=== PATIENT | female | born 1955 | race Caucasian/White ===

== ENCOUNTER 2018-10-24 08:03 | Emergency (ER) | payer SELFPAY ==
[~2018-10-24] VITALS: Ht 167.6 cm; Wt 83.9 kg
[~2018-10-24 08:03] MED LIST: CIPR500T78 PO; COLE625T9 PO; HYDR-3720 PO; HYDR-3876 PO; NITR-65 PO; NITR100C44 PO; NITR50CA4 PO; PARO40TA2 PO; PHEN200T27 PO; PRX20T PO; TAMS0.4C9 PO
[2018-10-24] MEDS ORDERED: NS IV 1000 ML 1,000 ML IV STA (08:08)
[2018-10-24] MEDS ORDERED: ONDANSETRON 4 MG/2 ML (SDV) Z0FRAN IVP ONE (08:15)
[2018-10-24] MEDS ORDERED: NITROGLYCERIN 0.4 MG SL TABS BTL 25'S SL PRN (08:15)
[2018-10-24 08:26] LABS: BASOPHILS % (AUTO) 0 % (0-10); EOSINOPHILS # (AUTO) 0.2 10^3/uL (0.0-0.3); EOSINOPHILS % (AUTO) 2 % (0-10); HEMATOCRIT 43 % (35-52); HEMOGLOBIN 14.4 G/DL (11.5-16.0); LYMPHOCYTES # (AUTO) 3.7 X 10^3 (1.0-4.0); LYMPHOCYTES % (AUTO) 43 % (12-44); MEAN CORPUSCULAR HEMOGLOBIN 31 PG (25-34); MEAN CORPUSCULAR HGB CONC 34 G/DL (32-36); MEAN CORPUSCULAR VOLUME 92 FL (80-99); MEAN PLATELET VOLUME 10.7 FL (7.4-10.4); MONOCYTES # (AUTO) 0.4 X 10^3 (0.0-1.0); MONOCYTES % (AUTO) 5 % (0-12); NEUTROPHILS # (AUTO) 4.4 X 10^3 (1.8-7.8); NEUTROPHILS % (AUTO) 51 % (42-75); PLATELET COUNT 262 10^3/uL (130-400); RED CELL DISTRIBUTION WIDTH 12.7 % (10.0-14.5); WHITE BLOOD COUNT 8.7 10^3/uL (4.3-11.0)
--- NOTE | 2018-10-24 08:27 | ED Chest Pain ---
General Chief Complaint: Chest Pain Stated Complaint: SYNCOPE Source: patient, EMS Exam Limitations: no limitations History of Present Illness Date Seen by Provider: Oct 24, 2018 Time Seen by Provider: 08:03 Initial Comments Here with report of chest pain and syncopal episode this morning. She apparently had got up and felt a little nauseated so she thought she should eat. She went to the kitchen to get some breakfast and sat down at the table. She became hot a nd sweaty and nauseated and then ultimately passed out onto the kitchen floor. She denies injury. Does complain of 6 out of 10 left-sided chest pain that is nonradiating. She's never had this before. Denies shortness of breath. 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 NTG SL OFFSET SECOND PRESS OPERATOR: No Associated Symptoms: No back pain; diaphoresis, nausea/vomiting; No shortness of breath; weakness Allergies and Home Medications Allergies Coded Allergies: hydromorphone (Unverified Allergy, Unknown, 09/23/14) Home Medications Paroxetine Hcl 40 Mg Tablet, 40 MG PO HS, (Reported) Patient Home Medication List Home Medication List Reviewed: Yes Review of Systems Review of Systems Constitutional: see HPI; No chills, No fever; weakness EENTM: No Symptoms Reported Respiratory: No Symptoms Reported Cardiovascular: Chest Pain, Syncope Gastrointestinal: Denies Constipated; Nausea, Vomiting Genitourinary: No Symptoms Reported Musculoskeletal: no symptoms reported All Other Systems Reviewed Negative Unless Noted: Yes Past Ckxsixt-Qpdvbx-Zsxvtv Hx Past Med/Social Hx: Reviewed Nursing Past Med/Soc Hx Patient Social History Alcohol Use: Denies Use Recreational Drug Use: No Smoking Status: Current Everyday Smoker Past Medical History Surgeries: Yes Section Respiratory: No Cardiac: No Neurological: No Reproductive Disorders: No Female Reproductive Disorders: Denies Sexually Transmitted Disease: No HIV/AIDS: No Genitourinary: Yes Kidney Stones Loss of Vision: Denies Hearing Impairment: Denies Anxiety Psoriasis Adverse Reaction/Blood Tranf: No Family Medical History Reviewed Nursing Family Hx No Pertinent Family Hx Physical Exam Vital Signs Vital Signs - First Documented 10/24/18 08:03 Temp 98.0 Pulse 70 Resp 18 B/P (MAP) 140/67 (91) Pulse Ox 96 O2 Delivery Room Air Capillary Refill : Height, Weight, BMI Height: 5'6.00" Weight: 200lbs. 0.0oz. 90.914208px; BMI Method:Stated General Appearance: No Apparent Distress, WD/WN HEENT: PERRL/EOMI, Pharynx Normal Neck: Non Tender, Supple Respiratory: Lungs Clear, Normal Breath Sounds Cardiovascular: Regular Rate, Rhythm, No Murmur Gastrointestinal: Non Tender, Soft Extremity: Normal Range of Motion, Non Tender Neurologic/Psychiatric: Alert, Oriented x3 Skin: Normal Color, Warm/Dry Progress/Results/Core Measures Results/Orders Lab Results Laboratory Tests Test 10/24/18 08:10 10/24/18 11:58 Range/Units White Blood Count 8.7 4.3-11.0 10^3/uL Red Blood Count 4.68 4.35-5.85 10^6/uL Hemoglobin 14.4 11.5-16.0 G/DL Hematocrit 43 35-52 % Mean Corpuscular Volume 92 80-99 FL Mean Corpuscular Hemoglobin 31 25-34 PG Mean Corpuscular Hemoglobin Concent 34 32-36 G/DL Red Cell Distribution Width 12.7 10.0-14.5 % Platelet Count 262 130-400 10^3/uL Mean Platelet Volume 10.7 H 7.4-10.4 FL Neutrophils (%) (Auto) 51 42-75 % Lymphocytes (%) (Auto) 43 12-44 % Monocytes (%) (Auto) 5 0-12 % Eosinophils (%) (Auto) 2 0-10 % Basophils (%) (Auto) 0 0-10 % Neutrophils # (Auto) 4.4 1.8-7.8 X 10^3 Lymphocytes # (Auto) 3.7 1.0-4.0 X 10^3 Monocytes # (Auto) 0.4 0.0-1.0 X 10^3 Eosinophils # (Auto) 0.2 0.0-0.3 10^3/uL Basophils # (Auto) 0.0 0.0-0.1 10^3/uL Prothrombin Time 13.3 12.2-14.7 SEC INR Comment 1.0 0.8-1.4 Activated Partial Thromboplast Time 27 24-35 SEC D-Dimer 1.11 H 0.00-0.49 UG/ML Sodium Level 142 135-145 MMOL/L Potassium Level 3.7 3.6-5.0 MMOL/L Chloride Level 105 98-107 MMOL/L Carbon Dioxide Level 25 21-32 MMOL/L Anion Gap 12 5-14 MMOL/L Blood Urea Nitrogen 12 7-18 MG/DL Creatinine 0.73 0.60-1.30 MG/DL Estimat Glomerular Filtration Rate > 60 BUN/Creatinine Ratio 16 Glucose Level 160 H 70-105 MG/DL Calcium Level 9.3 8.5-10.1 MG/DL Corrected Calcium 9.1 8.5-10.1 MG/DL Magnesium Level 2.0 1.6-2.4 MG/DL Total Bilirubin 0.5 0.1-1.0 MG/DL Aspartate Amino Transf (AST/SGOT) 22 5-34 U/L Alanine Aminotransferase (ALT/SGPT) 29 0-55 U/L Alkaline Phosphatase 83 40-136 U/L Myoglobin 22.2 10.0-92.0 NG/ML Troponin I < 0.028 < 0.028 <0.028 NG/ML Total Protein 7.3 6.4-8.2 GM/DL Albumin 4.2 3.2-4.5 GM/DL TSH [place] Testing 1.43 0.35-4.94 UIU/ML My Orders Orders - BRENT ROCKWELL MD Ekg Tracing (10/24/18 08:05) Cbc With Automated Diff (10/24/18 08:08) Magnesium (10/24/18 08:08) Chest 1 View, Ap/Pa Only (10/24/18 08:08) Cardiac Profile 1 (10/24/18 08:08) Comprehensive Metabolic Panel (10/24/18 08:08) Myoglobin Serum (10/24/18 08:08) Protime With Inr (10/24/18 08:08) Partial Thromboplastin Time (10/24/18 08:08) O2 (10/24/18 08:08) Monitor-Rhythm Ecg Trace Only (10/24/18 08:08) Lipid Panel (10/25/18 06:00) Ed Iv/Invasive Line Start (10/24/18 08:08) Fibrin Degradation Products (10/24/18 08:08) Nitroglycerin 0.4 Mg Btl 25's (Nitrostat (10/24/18 08:15) Ondansetron Injection (Zofran Injectio (10/24/18 08:15) Ns Iv 1000 Ml (Sodium Chloride 0.9%) (10/24/18 08:08) Morphine Injection (Morphine Injection (10/24/18 08:45) Ct Angio Chest W (10/24/18 08:58) Iohexol Injection (Omnipaque 350 Mg/Ml 1 (10/24/18 09:15) Received Contrast (Hold Metformin- Contr (10/24/18 09:15) Ns (Ivpb) (Sodium Chloride 0.9% Ivpb Bag (10/24/18 09:15) Thyroid Analyzer (10/24/18 10:16) Ketorolac Injection (Toradol Injection) (10/24/18 10:16) Us Thyroid [id number] (10/24/18 11:06) Troponin I (10/24/18 11:08) Ekg Tracing (10/24/18 11:08) Medications Given in ED Current Medications Medications Dose Ordered Sig/Zackary Route Start Time Stop Time Status Last Admin Dose Admin Iohexol 100 ml ONCE ONCE IV 10/24/18 09:15 10/24/18 09:16 DC 10/24/18 09:18 80 ML Nitroglycerin 0.4 mg UD PRN SL 10/24/18 08:15 10/24/18 08:25 0.4 MG Ondansetron HCl 4 mg ONCE ONCE IVP 10/24/18 08:15 10/24/18 08:16 DC 10/24/18 08:23 4 MG Sodium Chloride 100 ml ONCE ONCE IV 10/24/18 09:15 10/24/18 09:16 DC 10/24/18 09:18 80 ML Vital Signs/I&O 10/24/18 10/24/18 10/24/18 10/24/18 08:03 08:54 10:18 11:15 Temp 98.0 Pulse 70 69 67 65 Resp 18 18 18 18 B/P (MAP) 140/67 (91) 111/63 (79) 108/67 (81) 99/50 (66) Pulse Ox 96 96 95 96 O2 Delivery Room Air Room Air Room Air Room Air 10/24/18 12:12 Pulse 66 Resp 18 B/P (MAP) 105/52 (69) Pulse Ox 96 O2 Delivery Room Air Progress Progress Note : Progress Note Seen and evaluated. IV by EMS. Labs, x-ray, EKG and nitroglycerin sublingual ordered. Normal saline 1 L bolus. Monitor patient. Considered morphine but patient does not want to do that. Monitor patient. 1010: Labs reviewed and CT noted. We will add thyroid studies. There are currently no beds available here and none in the foreseeable future. She would prefer not to be transferred if possible. We will recheck EKG and troponin for serial testing. Toradol 30 mg IV ordered. Monitor patient. 1230: Pain free. I discussed the case with Dr. Mann and he will see her in follow-up at [place] on . Patient to call for appointment. We did get thyroid ultrasound given recommendations from CT and we're pending those results. Patient is pain-free. 1303: Ultrasound results noted and in chart. Repeat troponin negative. Repeat EKG is negative. Patient feels comfortable going home. Discharge home with return precautions. Patient verbalize understanding instructions and agreement with plan. Initial ECG Impression Date: Oct 24, 2018 Initial ECG Impression Time: 08:09 Initial ECG Rate: 60 Initial ECG Rhythm: Normal Sinus Initial ECG Impression: Normal Initial ECG Comparisson: No Previous ECG Available Comment Normal sinus rhythm with normal axis. No evidence of ST elevation OR. No previous available for comparison. Interpreted by me. EKG : EKG Time: 11:52 (11:52) Rate: 55 Rhythm: Normal Sinus ECG Impression: Normal Comment Sinus rhythm with normal axis. No evidence of ST elevation OR similar to sandra west done earlier today. Interpreted by me. Diagnostic Imaging Diagonstic Imaging: Xray Plain Films/CT/US/NM/MRI: chest Comments [facility]. [place], [place] NAME: RYAN ALLEN [facility] REC#: [id number] PT STATUS: REG ER : 1955 PHYSICIAN: BRENT ROCKWELL MD ADMIT DATE: 10/24/18/ER Draft Date of Exam:10/24/18 CHEST 1 VIEW, AP/PA ONLY INDICATION: Nausea and dizziness. FINDINGS: Portable chest. Lungs are well-aerated and clear. Heart not enlarged. No pulmonary edema. No pneumothorax or pleural effusion. No bony abnormalities. IMPRESSION: Negative portable chest. Dictated on workstation # [id number] Dict: 10/24/18 0854 Trans: 10/24/18 0856 [facility] [id number] Interpreted by: GLORIA HERNANDEZ MD Electronically signed by: Mik Imaging: CT Plain Films/CT/US/NM/MRI: chest Comments [facility] [place], [place] NAME: RYAN ALLEN [facility] REC#: [id number] PT STATUS: REG ER : 1955 PHYSICIAN: BRENT ROCKWELL MD ADMIT DATE: 10/24/18/ER Draft Date of Exam:10/24/18 CT ANGIO CHEST W PROCEDURE: CT angiography of the chest with contrast. TECHNIQUE: Multiple contiguous axial images were obtained through the chest after uneventful bolus administration of intravenous contrast. 3D reconstructed CTA MIP acquisitions were also performed. Auto Exposure Controls were utilized during the CT exam to meet ALARA standards for radiation dose reduction. INDICATION: Chest pain. Syncopal episode. COMPARISON: None. FINDINGS: This helical CT pulmonary angiogram is diagnostic to the subsegmental level branches of the pulmonary artery and demonstrates no pulmonary emboli. The heart and great vessels are unremarkable. No evidence of thoracic aortic aneurysm or dissection. There is scattered calcified aortic and coronary atherosclerotic plaque. There is no pericardial effusion. There is no axillary, mediastinal, or hilar adenopathy. Nodules are visualized within the right lobe of the thyroid with the largest measuring approximately 2.1 cm. Centrilobular emphysema is noted, greatest in the apices. Mild bronchial wall thickening is seen in the proximal bronchi. The lungs demonstrate no consolidation or suspicious pulmonary nodules. No pleural effusion or pneumothorax is seen. The osseous structures appear normal. Hepatic steatosis is noted. The bilateral adrenal glands are unremarkable. IMPRESSION: 1. No acute pulmonary embolus. 2. Mild bronchial wall thickening which can be seen with bronchitis/bronchiolitis. No focal consolidation. 3. Nodules within the thyroid with the largest measuring 2.1 cm in the right lobe of the thyroid. Recommend further evaluation with an outpatient thyroid ultrasound. 4. Hepatic steatosis. Dictated on workstation # [id number] Dict: 10/24/18 0945 Trans: 10/24/18 0952 [id number] Interpreted by: JAKUB ANSARI DO Electronically signed by: Mik Imaging: Ultrasound Plain Films/CT/US/NM/MRI: other Comments [facility] [place] [place] NAME: RYAN ALLEN [facility] REC#: [id number] PT STATUS: REG ER : 1955 PHYSICIAN: BRENT ROCKWELL MD ADMIT DATE: 10/24/18/ER Draft Date of Exam:10/24/18 US THYROID [id number] PROCEDURE: US Thyroid. TECHNIQUE: Multiple Real-time grayscale images were obtained of the thyroid in various projections. INDICATION: Multinodular goiter. COMPARISON: No prior studies are available for comparison. FINDINGS: The right lobe of the thyroid measures 5.9 x 3.6 x 2.0 cm and the left lobe measures 4.6 x 1.4 x 1.3 cm. The isthmus is 4 mm in thickness. The left lobe of the thyroid does contain a circumscribed hypoechoic nodule in the lower pole measuring 1.3 x 0.7 x 0.8 cm. This has have macrocalcifications. Larger nodules are identified throughout the right lobe of the thyroid. A hypoechoic nodule in the midportion of the right lobe measures 2.5 x 1.8 x 1.8 cm. A nodule in the midline involving the isthmus measures 2.4 x 1.4 x 2.2 cm. A smaller nodule in the upper pole measures 1.4 x 0.9 x 1.0 cm. No other masses are seen. IMPRESSION: Multinodular thyroid, most suggestive of a multinodular goiter. Dominant nodules are located in the right lobe. Consideration could be given to performance of fine-needle aspiration. If no intervention is performed, a followup ultrasound in 6 months would be recommended to confirm stability. Dictated on workstation # [id number] Dict: 10/24/18 1212 Trans: 10/24/18 1222 [id number] Interpreted by: DANISHA LAWRENCE MD Electronically signed by: Departure Impression Primary Impression: Chest pain Qualified Codes: R07.9 - Chest pain, unspecified Additional Impression: Multinodular goiter Disposition: HOME, SELF-CARE Condition: Improved Departure-Patient Inst. Decision time for Depature: 13:05 Referrals: CHING CALDWELL MD (PCP/Family) Primary Care Physician MARINA MANN MD Patient Instructions: Chest Pain (DC), Thyroid Nodules Add. Discharge Instructions: All discharge instructions reviewed with patient and/or family. Voiced understanding. Call Dr. Mann's office today for appointment on . You are to be seen in the [facility]. Let the receptionist scheduler know when you call for the appointment that the case was discussed with Dr. Mann and that he would see him on . Your thyroid ultrasound recommends repeat ultrasound in 6 months at a minimum with consideration of fine needle biopsy if needed. You can discuss this with your doctor, Dr. Caldwell. Make appointment with her for the next week or 2 for recheck and further evaluation. Return for worse pain, fever, vomiting, weakness, breathing problems or other concerns as needed. Copy Copies To 1: CHING CALDWELL MD Copies To 2: MARINA MANN MD, TIMOTHY D MD Oct 24, 2018 08:27
[2018-10-24 08:37] LABS: PROTHROMBIN TIME PATIENT 13.3 SEC (12.2-14.7)
[2018-10-24 08:45] LABS: ALANINE AMINOTRANSFERASE 29 U/L (0-55); ALBUMIN 4.2 GM/DL (3.2-4.5); ALKALINE PHOSPHATASE 83 U/L (40-136); BILIRUBIN,TOTAL 0.5 MG/DL (0.1-1.0); BUN/CREATININE RATIO 16; CALCIUM 9.3 MG/DL (8.5-10.1); CARBON DIOXIDE 25 MMOL/L (21-32); CHLORIDE 105 MMOL/L (98-107); CREATININE SERUM 0.73 MG/DL (0.60-1.30); GFR ESTIMATED > 60; GLUCOSE 160 MG/DL (70-105); POTASSIUM 3.7 MMOL/L (3.6-5.0); SODIUM 142 MMOL/L (135-145); TOTAL PROTEIN 7.3 GM/DL (6.4-8.2)
[2018-10-24] MEDS ORDERED: morphine INJ 10 MG/ML 1ML (SYR OR VIAL) IVP ONE (08:45)
--- NOTE | 2018-10-24 08:45 | NUR ---
PAIN 2 DR NOTIFIED THAT 2ND NITRO NOT GIVEN DUE TO 109/64.
[2018-10-24 08:54] VITALS: BP 111/63
--- NOTE | 2018-10-24 08:56 | Diagnostic Imaging Report ---
INDICATION: Nausea and dizziness. FINDINGS: Portable chest. Lungs are well-aerated and clear. Heart not enlarged. No pulmonary edema. No pneumothorax or pleural effusion. No bony abnormalities. IMPRESSION: Negative portable chest. Dictated by: Dictated on workstation # [id number]
[2018-10-24] MEDS ORDERED: IOHEXOL 350 MG/ML 100 ML (OMNIPAQUE 350) VIAL IV ONE (09:15)
[2018-10-24] MEDS ORDERED: NS 100 ML (IVPB) BAG IV ONE (09:15)
[2018-10-24] MEDS ORDERED: HOLD METFORMIN - RECEIVED CONTRAST 20 ML VIAL IV SCH (09:15)
--- NOTE | 2018-10-24 09:48 | NUR ---
TO ROOM PATIENT RATE CP 04/30 DECLINED MORPHINE
--- NOTE | 2018-10-24 09:53 | Diagnostic Imaging Report ---
PROCEDURE: CT angiography of the chest with contrast. TECHNIQUE: Multiple contiguous axial images were obtained through the chest after uneventful bolus administration of intravenous contrast. 3D reconstructed CTA MIP acquisitions were also performed. Auto Exposure Controls were utilized during the CT exam to meet ALARA standards for radiation dose reduction. INDICATION: Chest pain. Syncopal episode. COMPARISON: None. FINDINGS: This helical CT pulmonary angiogram is diagnostic to the subsegmental level branches of the pulmonary artery and demonstrates no pulmonary emboli. The heart and great vessels are unremarkable. No evidence of thoracic aortic aneurysm or dissection. There is scattered calcified aortic and coronary atherosclerotic plaque. There is no pericardial effusion. There is no axillary, mediastinal, or hilar adenopathy. Nodules are visualized within the right lobe of the thyroid with the largest measuring approximately 2.1 cm. Centrilobular emphysema is noted, greatest in the apices. Mild bronchial wall thickening is seen in the proximal bronchi. The lungs demonstrate no consolidation or suspicious pulmonary nodules. No pleural effusion or pneumothorax is seen. The osseous structures appear normal. Hepatic steatosis is noted. The bilateral adrenal glands are unremarkable. IMPRESSION: 1. No acute pulmonary embolus. 2. Mild bronchial wall thickening which can be seen with bronchitis/bronchiolitis. No focal consolidation. 3. Nodules within the thyroid with the largest measuring 2.1 cm in the right lobe of the thyroid. Recommend further evaluation with an outpatient thyroid ultrasound. 4. Hepatic steatosis. Dictated by: Dictated on workstation # [id number]
[2018-10-24] MEDS ORDERED: KETOROLAC 30 MG/ML VIAL IVP STA (10:16)
[2018-10-24 10:18] VITALS: BP 108/67
--- NOTE | 2018-10-24 11:11 | NUR ---
AMB TO BATHROOM REPORTS PAIN 0/10
[2018-10-24 11:15] VITALS: BP 99/50
--- NOTE | 2018-10-24 11:43 | NUR ---
UNABLE TO DRAW BLOOD FROM IV LAB NOTIFIED. Addendum: 10/24/18 at 1148 by PMCCLURE CORBY AT BEDSIDE.
--- NOTE | 2018-10-24 11:55 | NUR ---
LAB HERE TO DRAW 2ND TROPONIN
[2018-10-24 12:12] VITALS: BP 105/52
--- NOTE | 2018-10-24 12:23 | Diagnostic Imaging Report ---
PROCEDURE: US Thyroid. TECHNIQUE: Multiple Real-time grayscale images were obtained of the thyroid in various projections. INDICATION: Multinodular goiter. COMPARISON: No prior studies are available for comparison. FINDINGS: The right lobe of the thyroid measures 5.9 x 3.6 x 2.0 cm and the left lobe measures 4.6 x 1.4 x 1.3 cm. The isthmus is 4 mm in thickness. The left lobe of the thyroid does contain a circumscribed hypoechoic nodule in the lower pole measuring 1.3 x 0.7 x 0.8 cm. This has have macrocalcifications. Larger nodules are identified throughout the right lobe of the thyroid. A hypoechoic nodule in the midportion of the right lobe measures 2.5 x 1.8 x 1.8 cm. A nodule in the midline involving the isthmus measures 2.4 x 1.4 x 2.2 cm. A smaller nodule in the upper pole measures 1.4 x 0.9 x 1.0 cm. No other masses are seen. IMPRESSION: Multinodular thyroid, most suggestive of a multinodular goiter. Dominant nodules are located in the right lobe. Consideration could be given to performance of fine-needle aspiration. If no intervention is performed, a followup ultrasound in 6 months would be recommended to confirm stability. Dictated by: Dictated on workstation # [id number]
[2018-10-24 13:23] VITALS: BP 123/60
== END 2018-10-24 13:23 | disposition home or self-care (01) ==
LOC: EDUNIT# 08:03 → ER 08:04
DX: R07.9 Chest pain, unspecified (principal); E04.2 Nontoxic multinodular goiter; F41.9 Anxiety disorder, unspecified; F17.200 Nicotine dependence, unspecified, uncomplicated; Z87.442 Personal history of urinary calculi; Z88.5 Allergy status to narcotic agent
CPT/HCPCS: 36415; 71045; 71275; 76536; 80053; 83735; 83874; 84443; 84484; 85025; 85379; 85610; 85730; 93005; 93041

== ENCOUNTER → 2018-10-31 | Outpatient (CLI) | payer OTHER | LOC: CARD 13:51 | PROVIDERS: ATTEND Internal Medicine Cardiovascular Disease | DX: I10 Essential (primary) hypertension (principal); R07.9 Chest pain, unspecified; R55 Syncope and collapse; Z72.0 Tobacco use | CPT/HCPCS: 93306 ==

== ENCOUNTER → 2018-11-01 | Outpatient (CLI) | payer OTHER ==
[2018-11-01] VITALS (18 sets, daily range): BP systolic 58–134; BP diastolic 27–72
[~2018-11-01] MED LIST changes: +ATROPINE INJECTION 1 MG/10 ML SYR (ABBOTT) ONE; +NS IV 1000 ML 1,000 ML ONE; +REGADENOSON 0.4 MG/5 ML SYR (LEXISCAN) IV ONE
[2018-11-01] MEDS: CATHETER FLUSH 10 ML SYR IV PRN ×2 (08:27→09:36)
--- NOTE | 2018-11-01 13:39 | Cardiology Tilt Table Test ---
Cardiology-Tilt Table Test Tilt Table Test Date 11/01/18 Baseline Vitals Vital Signs Date Time Temp Pulse Resp B/P (MAP) Pulse Ox O2 Delivery O2 Flow Rate FiO2 11/01/18 09:35 50 16 113/50 98 Room Air Vital Signs VS - Last 72 Hours, by Label 11/01/18 11/01/18 11/01/18 11/01/18 09:35 11:23 11:24 11:29 Pulse 50 45 55 59 Resp 16 B/P (MAP) 113/50 134/60 132/59 Pulse Ox 98 98 96 O2 Delivery Room Air 11/01/18 11/01/18 11/01/18 11/01/18 11:31 11:34 11:35 11:36 Pulse 61 63 61 57 B/P (MAP) 128/63 120/62 128/64 131/66 Pulse Ox 97 11/01/18 11/01/18 11/01/18 11/01/18 11:37 11:38 11:39 11:40 Pulse 65 70 76 81 B/P (MAP) 111/60 105/50 106/59 89/54 Pulse Ox 94 11/01/18 11/01/18 11/01/18 11/01/18 11:41 11:42 11:44 11:45 Pulse 71 53 55 60 B/P (MAP) 59/37 58/27 70/39 97/56 11/01/18 11/01/18 11/01/18 11:48 11:50 11:59 Pulse 62 55 62 B/P (MAP) 99/63 99/61 110/72 Pulse Ox 96 95 Patient was tilted to 75 degrees for [10] minutes, then returned to supine position, given [2] sublingual nitroglycerin tablets, then tilted again to 75 degrees for [15] minutes. During test, patient was: symptomatic In Conclusion;: Positive Tilt Table Test At stage 2, min 2, patient became dizzy and lightheaded with BP 59/37 HR 62. No full syncopal episode. Instructed to increase fluid and use ROMY hose. This is Rosalinda Casas PA-C, as a scribe for Dr. Mann. ROSALINDA SAWYER Nov 01, 2018 13:39
== END ==
LOC: CARD 08:05
PROVIDERS: ATTEND Internal Medicine Cardiovascular Disease
DX: I10 Essential (primary) hypertension (principal); R07.9 Chest pain, unspecified; R55 Syncope and collapse; Z72.0 Tobacco use
CPT/HCPCS: 78452; 93017; 93660

== ENCOUNTER → 2018-11-27 | Outpatient (CLI) | payer OTHER ==
[~2018-11-27] VITALS: Ht 167.7 cm; Wt 86.4 kg
[~2018-11-27] MED LIST changes: -ATROPINE INJECTION 1 MG/10 ML SYR (ABBOTT) ONE; +LIDOCAINE 1% INJ 20 ML 20 ML VIAL INJ ONE; -NS IV 1000 ML 1,000 ML ONE; -REGADENOSON 0.4 MG/5 ML SYR (LEXISCAN) IV ONE
--- NOTE | 2018-11-27 15:11 | Diagnostic Imaging Report ---
INDICATION: Thyroid nodules. TECHNIQUE: The patient was brought to the procedure room and placed on the table in the supine position. Ultrasound imaging over the right neck was performed to evaluate for an appropriate entry site. The skin of the right neck was prepped and draped in the usual sterile fashion. A small amount of 1% lidocaine was utilized for local anesthesia. A total of four passes was made into the solid nodule in the right aspect of the isthmus utilizing a 25-gauge needle and fine needle aspiration technique. Hemostasis was obtained using manual compression. The patient tolerated the procedure well. IMPRESSION: Successful ultrasound guided fine needle aspiration of a solid nodule within the right aspect of the thyroid isthmus. Pathology results are currently pending. Dictated by: Dictated on workstation # [id number]
--- NOTE | 2018-11-27 15:13 | Diagnostic Imaging Report ---
INDICATION: Right thyroid nodules. TECHNIQUE: The patient was brought to the procedure room and placed on the table in the supine position. Ultrasound imaging over the right neck was performed to evaluate for an appropriate entry site. The right neck was then prepped and draped in the usual sterile fashion. A small amount of 1% lidocaine was utilized for local anesthesia. A total of four passes was made into the solid hypoechoic nodule in the posterior right lobe of the thyroid utilizing a 25-gauge needle and fine needle aspiration technique. Hemostasis was obtained using manual compression. The patient tolerated the procedure well and left the Department in stable condition. IMPRESSION: Successful ultrasound-guided fine-needle aspiration of the solid nodule in the posterior right lobe of the thyroid. Pathology results are currently pending. Dictated by: Dictated on workstation # [id number]
== END ==
LOC: RAD 12:25
PROVIDERS: ATTEND Nurse Practitioner Family
DX: E04.2 Nontoxic multinodular goiter (principal)

== ENCOUNTER → 2019-03-29 | Outpatient (CLI) | payer OTHER ==
[~2019-03-29] MED LIST changes: -LIDOCAINE 1% INJ 20 ML 20 ML VIAL INJ ONE
--- NOTE | 2019-03-29 10:05 | Diagnostic Imaging Report ---
PROCEDURE: US Thyroid. TECHNIQUE: Multiple real-time grayscale images were obtained of the thyroid in various projections. INDICATION: Thyroid nodules, follow-up. Correlation is made with prior thyroid ultrasound from 10/24/2018. FINDINGS: Right lobe of the thyroid measures 6.2 x 2.7 x 2.1 cm and the left lobe measures 4.6 x 1.4 x 1.3 cm. Isthmus is 4 mm in thickness. Numerous thyroid nodules are present, particularly in the right lobe. Solid nodule upper pole right lobe is stable at 1.4 x 0.8 x 1.1 cm. A large nodule mid aspect right lobe is stable at 2.4 x 1.8 x 1.8 cm. Nodule in the region of the isthmus measures 2.4 x 1.4 x 2.2 cm, unchanged. There are additional nodules. Lower pole nodule on the left is stable. IMPRESSION: Bilateral thyroid nodules, stable when compared with prior examination from 10/24/2018. Dictated by: Dictated on workstation # [id number]
== END ==
LOC: RAD 07:40
PROVIDERS: ATTEND Surgery
DX: E04.1 Nontoxic single thyroid nodule (principal)
CPT/HCPCS: 76536

== ENCOUNTER → 2019-07-12 | Outpatient (CLI) | payer OTHER | LOC: LAB 08:34 | PROVIDERS: ATTEND Surgery | DX: E04.2 Nontoxic multinodular goiter (principal); Z86.79 Personal history of other diseases of the circulatory system | CPT/HCPCS: 36415; 82310 ==

== ENCOUNTER → 2020-09-15 | Outpatient (CLI) | payer MEDICARE ==
--- NOTE | 2020-09-15 15:00 | Diagnostic Imaging Report ---
INDICATION: Routine screening. COMPARISON is made with prior mammogram 05/28/2011. 2-D and 3-D bilateral screening mammography was performed with CAD. Scattered fibroglandular densities are identified bilaterally. Occasional benign calcifications are noted. No mass or malignant-appearing microcalcifications are seen. Axillae are unremarkable. IMPRESSION: BI-RADS Category 2 No mammographic features suspicious for malignancy are identified. ACR BI-RADS Category 2: Benign findings. Result letter will be mailed to the patient. Note: At least 10% of breast cancer is not imaged by mammography. Dictated by: Dictated on workstation # [id number]
== END ==
LOC: RAD 08:45
PROVIDERS: ATTEND Nurse Practitioner Family
DX: Z12.31 Encounter for screening mammogram for malignant neoplasm of breast (principal)
CPT/HCPCS: 77063; 77067